=== PATIENT | male | born 1955 | race Caucasian/White ===

== ENCOUNTER → 2017-02-26 | Day surgery (SDC) | payer OTHER ==
[~2017-02-26] VITALS: Ht 182.9 cm; Wt 99.8 kg
[~2017-02-26] MED LIST: 0.9% Sodium Chloride 1,000 ML IV PRN; ADV250INH IH; ALBU90AE IH; ALFU10TA11 PO; FLUT15.88 NS; MONT4GRA PO; SILO8CAP PO; Sodium Chloride LOK Flush 10 mL Syringe IV PRN; TADA20TA PO; VANAQ; fentaNYL-PF 50 mCg/mL 2 mL Inj IVPUSH PRN
[2017-02-26 10:26] VITALS: BP 134/82; PULSE 60; RESP 16; O2SAT 97
[2017-02-26 11:17] VITALS: BP 114/68; PULSE 70; RESP 16; O2SAT 96
[2017-02-26 11:25] VITALS: BP 106/79; PULSE 72; RESP 16; O2SAT 95
[2017-02-26 11:36] VITALS: BP 111/77; PULSE 57; RESP 15; O2SAT 96
--- NOTE | 2017-02-26 11:37 | ENDO ---
[address] [address] ENDOSCOPY PROCEDURE PATIENT: CHAR CRAVEN : 1955 MR#: [id number] ADMIT: 02/26/2017 JOB ID: [id number] DATE: 02/26/2017 PRIMARY PROVIDER: Kei Patel PROCEDURE: Colonoscopy with cold snare polypectomy. INDICATIONS: A 61-year-old male with a personal history of colon polyps returning for surveillance. EQUIPMENT: PCF H 180 AL. SEDATION: 1. 6 mg Versed. 2. 100 mcg fentanyl. COMPLICATIONS: None identified. BOWEL PREPARATION: Fair, adequate examination. PROCEDURAL INFORMATION: After the risks and benefits were explained, written and verbal informed consent was obtained. The patient was brought into the endoscopy suite and placed into the left lateral decubitus position. Sedation was achieved using the above-stated medications with the addition of oxygen via nasal cannula. Digital rectal examination was accomplished and did not elicit any obvious anorectal pathology. Mild internal hemorrhoids. The scope was introduced into the rectum and advanced under direct visualization to the level of the cecum, as identified by the appendiceal orifice and ileocecal valve. The scope was slowly withdrawn to carefully examine the mucosa for any defects or lesions. Retroflexed views were accomplished in the rectum. The colon was decompressed. The scope removed from the patient who tolerated the procedure well. FINDINGS: In the transverse colon, there was a diminutive polyp removed with cold snare. In the sigmoid colon, there was another diminutive polyp removed with cold snare. These were labeled "colon polyps." There was some mild diverticulosis in the left colon. Retroflexed views were otherwise unremarkable. No other significant pathology appreciated throughout. ENDOSCOPIC DIAGNOSES: 1. Colon polyps. 2. Diverticulosis. 3. Hemorrhoids. RECOMMENDATIONS: 1. Await histopathology. 2. Repeat colonoscopy five years.
--- NOTE | 2017-02-27 13:29 | PATH ---
SURGICAL PATHOLOGY Attending Physician:Yonatan Bee CASE STATUS: Signed Out PATIENT NAME: CHAR CRAVEN PID: [id number] : 1955 DATE COLLECTED:02/26/2017 22:41 SPECIMEN: Colon, Polyp CLINICAL HISTORY: 1). 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 ICD10 D12.6 GROSS DESCRIPTION: The specimen is received in one formalin filled container labeled with the patient's name, sublabeled "colon polyps" and consists of 2 portions of tissue which aggregate to 0.4 x 0.4 x 0.3 CM. The specimen is entirely submitted in one cassette. 02/27/2017 DAC MICRO DESCRIPTION: See diagnosis. ICD-9 CODES: CPT CODES: 1: 33028 Electronically Signed Out Richie Simmons MD [facility] [address] [facility], [place] [address] Technical component performed at [facility], [facility] [address], [place], [address]
== END | disposition home or self-care (01) ==
LOC: END 00:39
PROVIDERS: ATTEND Internal Medicine Gastroenterology
DX: Z12.11 Encounter for screening for malignant neoplasm of colon (principal); D12.3 Benign neoplasm of transverse colon; D12.5 Benign neoplasm of sigmoid colon; K57.30 Diverticulosis of large intestine without perforation or abscess without bleeding; K64.8 Other hemorrhoids; Z86.010 Personal history of colon polyps
CPT/HCPCS: 45385; 88305; 99153; G0500; J2250; J3010; J7030